=== PATIENT | male | born 1995 | race Caucasian/White ===

== ENCOUNTER 2019-08-01 06:51 | Day surgery (SDC) | payer OTHER ==
[~2019-08-01] VITALS: Ht 177.8 cm; Wt 90.5 kg
[2019-08-01 07:18] VITALS: BP 139/69; PULSE 53; TEMP 97.2
--- NOTE | 2019-08-01 07:26 | NUR ---
TO RM 6 AT 0700- CALL LIGHT IN REACH GIRLFRIEND OSEAS AT BEDSIDE.
[2019-08-01 11:50] VITALS: BP 130/73; PULSE 62; TEMP 97.3
--- NOTE | 2019-08-01 11:50 | NUR ---
TO RM 6 PER CART FROM PACU. ALERT ORIENTED X 3, TALKING WITH STAFF AND GIRLFRIEND. DRESSINGS CLEAN DRY INTACT. DENIES PAIN OR DISCOMFORT DENIES NAUSEA/VOMITING.
[2019-08-01 12:05] VITALS: BP 125/63; PULSE 50
--- NOTE | 2019-08-01 12:05 | NUR ---
RECEIVED MUFFIN, COFFEE AND OJ. NO CHANGES AT THIS TIME.
[2019-08-01 12:20] VITALS: BP 132/74; PULSE 50
--- NOTE | 2019-08-01 12:20 | NUR ---
ATE 100% AND TOLERATED WELL AMBULATED TO BATHROOM, VOIDED AND TOLERATED WELL.
--- NOTE | 2019-08-01 12:35 | NUR ---
RECEOVED DISCHARGE INSTRUCTIONS AND VERBALIZED UNDERSTANDING. DISCONTINUED IV AND INT- CATHETER INTACT PATIENT GETTING DRESSED.
--- NOTE | 2019-08-01 12:45 | NUR ---
DISCHARGED PER WC BY NURSING STAFF TO PRIVATE CAR IN IN CARE OF GIRLFRIEND OSEAS.
== END 2019-08-01 12:51 | disposition home or self-care (01) ==
LOC: SDCO 06:51
DX: N62 Hypertrophy of breast (principal)
CPT/HCPCS: J0690; J2250; J2405; J2704; J3010; J7120